=== PATIENT | male | born 1955 | race Caucasian/White ===

== ENCOUNTER 2020-06-02 10:09 | Outpatient (CLI) | payer MEDICARE ==
--- NOTE | 2020-06-02 10:28 | RAD ---
XR Hip Lt 2-3 View HISTORY: Left hip pain, hip arthritis FINDINGS: No fracture or dislocation is identified. There are degenerative changes in the left hip joint. IMPRESSION: Left hip osteoarthritis
== END 2020-06-02 10:10 | disposition home or self-care (01) ==
LOC: BICRAD 10:09
PROVIDERS: ATTEND Anesthesiology Pain Medicine
DX: M16.12 Unilateral primary osteoarthritis, left hip (principal)

== ENCOUNTER 2020-08-27 13:45 | Inpatient (IN) | payer MEDICARE ==
[2020-08-30 11:23] VITALS: BMI 26.2
[2020-08-31] MEDS ORDERED: Sodium Chloride 0.9% 100 ML ONE (06:02)
[2020-08-31] MEDS ORDERED: Vancomycin 1.5 GRAM/300 ML BAG ONE (06:02)
[2020-08-31] MEDS ORDERED: Tranexamic Acid 1,000 MG/10 ML VIAL ONE ×2 (06:02)
[2020-08-31] MEDS ORDERED: Fentanyl 100 MCG/2 ML VIAL ONE ×4 (06:25→09:41)
[2020-08-31] MEDS ORDERED: Midazolam HCl 2 mg/2 ml Vial ONE (06:26)
[2020-08-31] MEDS ORDERED: Acetaminophen 500 MG TAB PO PRN ×2 (07:24→16:00)
[2020-08-31] MEDS ORDERED: Ropivacaine 0.2% HCl/PF 20 ML ONE (07:25)
[2020-08-31] MEDS ORDERED: Promethazine HCl 25 MG/ML VIAL IM PRN ×4 (07:30→16:00)
[2020-08-31] MEDS ORDERED: Hydrocerin (Eucerin) Cream 120 gm Jar TOP PRN ×2 (07:30→16:00)
[2020-08-31] MEDS ORDERED: Promethazine HCl 25 MG SUPP PR PRN ×2 (07:30→16:00)
[2020-08-31] MEDS ORDERED: diphenhydrAMINE 25 MG CAP PO PRN ×3 (07:30→16:00)
[2020-08-31] MEDS ORDERED: Zolpidem Tartrate 5 MG TAB PO PRN ×3 (07:30→16:00)
[2020-08-31] MEDS ORDERED: Naloxone HCl 0.4 mg/ml Vial IVP PRN (07:30)
[2020-08-31] MEDS ORDERED: traMADol HCl 50 MG TAB PO PRN ×5 (07:30→16:00)
[2020-08-31] MEDS ORDERED: diphenhydrAMINE 50 MG/ML VIAL IVP PRN ×2 (07:30→16:00)
[2020-08-31] MEDS ORDERED: Naloxone HCl 0.4 mg/ml Vial IV PRN (07:30)
[2020-08-31] MEDS ORDERED: Bupivacaine 0.25% 10 ML VIAL EPIDURAL PRN (07:30)
[2020-08-31] MEDS ORDERED: Ondansetron PF 4 MG/2 ML Vial IVP PRN ×3 (07:30→16:00)
[2020-08-31] MEDS ORDERED: HYDROcodone/Acetaminophen 5/325 mg Tablet PO PRN ×4 (07:30→16:00)
[2020-08-31] MEDS ORDERED: diphenhydrAMINE 50 MG/ML VIAL IM PRN ×2 (07:30→16:00)
[2020-08-31] MEDS ORDERED: Sodium Chloride 0.9% 10 ML ONE (07:32)
[2020-08-31] MEDS ORDERED: Ondansetron HCl/PF 4 MG/2 ML Vial IVP PRN (08:14)
[2020-08-31] MEDS ORDERED: Promethazine HCl 25 MG/ML VIAL SLOW IVP PRN (08:14)
--- NOTE | 2020-08-31 10:18 | RAD ---
LEFT HIP 1 VIEW: HISTORY: Postop evaluation. FINDINGS/IMPRESSION: Left hip prosthesis is noted. Components appear adequately positioned on this single projection. POS: AGW
--- NOTE | 2020-08-31 10:18 | RAD ---
AP PELVIS: INDICATION: Pelvic pain and hip pain. FINDINGS: Left hip prosthesis. Components appear adequately positioned. No evidence of loosening of the prost hetic components. Small osseous density is seen along the lateral right sacrum. If there is concern of sacral injury, further evaluation is recommended. The bony pelvis otherwise appears intact. The right hip is unremarkable. IMPRESSION: Indeterminate density adjacent to the lateral right mid sacrum. Recommend clinical correlation regar ding sacral injury. AP pelvis otherwise unremarkable with left hip prosthesis noted. POS: AGW
[2020-08-31] MEDS ORDERED: Ketorolac Tromethamine 30 MG/ML VIAL IVP PRN (11:02)
[2020-08-31] MEDS ORDERED: HYDROcodone/Acetaminophen 10/325 mg Tablet PO PRN ×2 (11:02)
[2020-08-31] MEDS ORDERED: Acetaminophen 325 MG TAB PO PRN (11:02)
[2020-08-31] MEDS ORDERED: Fentanyl 100 MCG/2 ML VIAL SLOW IVP PRN ×2 (11:02)
[2020-08-31] MEDS ORDERED: Ketorolac Tromethamine 30 MG/ML VIAL ONE (11:53)
[2020-08-31] MEDS: Ketorolac Tromethamine 30 MG/ML VIAL IVP SCH ×3 (11:55→23:40)
[2020-08-31] MEDS: Sodium Chloride 0.9% 1,000 ML IV SCH ×2 (11:55→21:03)
[2020-08-31] MEDS ORDERED: ePHEDrine 50 MG/ML VIAL ONE (11:59)
[2020-08-31] MEDS ORDERED: Lidocaine 1% PF 5 ML VIAL ONE (11:59)
[2020-08-31] MEDS ORDERED: Metoclopramide HCl 10 MG/2 ML VIAL ONE (11:59)
[2020-08-31] MEDS ORDERED: PROPOFOL 200 MG/20 ML VIAL ONE (11:59)
[2020-08-31] MEDS ORDERED: PHENYLEPHRINE-NS 100 MCG/ML 10 ML SYRINGE ONE (11:59)
[2020-08-31] MEDS ORDERED: Rocuronium Bromide 10 MG/ML (10ML VIAL) ONE (11:59)
[2020-08-31] MEDS ORDERED: Lidocaine 1.5% w/Epi 1:200K 30 ML VIAL (Epid Use) ONE (11:59)
[2020-08-31] MEDS ORDERED: Glycopyrrolate 0.2 MG/ML 5 ML SYRINGE ONE (11:59)
[2020-08-31] MEDS ORDERED: Ondansetron PF 4 MG/2 ML Vial ONE (11:59)
[2020-08-31] MEDS: CEFAZOLIN 2 GM in Premix Bag 1 BAG IVPB SCH ×2 (14:28→21:03)
[2020-08-31] MEDS: metFORMIN 500 MG TAB PO SCH (17:05)
[2020-08-31] MEDS ORDERED: Vancomycin 1.5 GRAM/300 ML BAG 1.5 GM in Premix Bag 1 BAG IVPB SCH (18:00)
[2020-08-31] MEDS ORDERED: Vancomycin HCl 1.5 GM in Sodium Chloride 0.9% 250 ML 300 ML IVPB SCH (18:00)
[2020-08-31] MEDS: Alogliptin 6.25 MG TAB PO SCH (21:00)
[2020-08-31] MEDS: Ferrous Gluconate 324 MG TAB PO SCH (21:02)
[2020-08-31] MEDS: Aspirin 81 mg Enteric Coated Tablet PO SCH (21:02)
[2020-08-31] MEDS: Senokot S 8.6-50 MG TAB PO SCH (21:02)
[2020-08-31] MEDS: Fentanyl 5 mcg/Bup 0.075% Cadd 100 ML EPIDURAL SCH (23:48)
[2020-09-01] MEDS: Ketorolac Tromethamine 30 MG/ML VIAL IVP SCH ×4 (05:40→22:59)
--- NOTE | 2020-09-01 06:35 | OP ---
DATE OF PROCEDURE: 08/31/2020 PREOPERATIVE DIAGNOSIS: Left hip osteoarthritis. POSTOPERATIVE DIAGNOSIS: Left hip osteoarthritis. PROCEDURE PERFORMED: Left total hip arthroplasty. POULTRY VETERINARIAN: Maico Hyman PA-C ANESTHESIOLOGIST: Aydin Sampson MD ANESTHESIA: The patient received general intubation with epidural. ESTIMATED BLOOD LOSS: 175. TOURNIQUET TIME: None. ANTIBIOTICS: Ancef 2 g and vancomycin 1.5 g. The patient received TXA 1 g. IMPLANTS: A Trident II 56 mm shell with a Trident X3 10-degree poly, 36 mm; Accolate II 130-degree stem, size 4; a Biolox Delta 36 mm +0 femoral head. COMPLICATIONS: None. INDICATIONS FOR PROCEDURE: Mr. Knight is a 65-year-old male with left hip pain. The patient failed conservative measures including pain, weight reduction, anti-inflammatories, home stretching, and injections. The patient understood the risks and benefits of left total hip to include pain, scar, bleeding, infection, damage to vital structures, decreased range of motion and strength, continued pain despite surgical intervention, need for further surgeries, loss of life or limb. The patient and family understood the risks and benefits, understood that it could be slightly shortened, slightly lengthened, or external rotated. He understood these risks and benefits and elected to proceed. DESCRIPTION OF PROCEDURE: Time-out was performed designating the patient's left lower extremity as the operative site based on site, consents, and marking. After time-out, the patient's left lower extremity was prepped and draped in sterile fashion. The patient was placed in lateral decubitus position with bony prominences well padded and axillary roll in place. The patient was prepped and draped in a sterile fashion. I made a skin incision down through skin and came down to the IT band. Split the IT band, I came down to the gluteus medius and peeled off the quadratus femoris. We exposed the capsule. We T'd the capsule, put stay sutures in the anterior and posterior, dislocated the head, cut the femoral neck and removed the femoral head. We moved back to the acetabulum, placed our acetabular retractors anterior and posterior, sized our labrum, started sequentially reaming, reamed up to a 54 trial, felt that we would have better fit with the 56, placed a 56 mm cup in position, hammered in position. We used an osteotome to osteotome some of the bone anteriorly to help with any potential signs of impingement. We then washed. We put our final 56 mm cup into position and impacted in place. Had a slight bleeder, which we controlled, placed our poly, moved to our femur. We broached up starting with our [employer] cutter, opening awl, broached up to a size 4, had good overall alignment. First trialed with a -5, placed our final stem, placed a standard in, we trialed, we felt it was good position. We then placed the ceramic Biolox 36 mm standard head, reduced it into place. We liked the length, rotation, and stability. We washed. We closed the capsule with #2 Vicryl. We closed the medius and minimus using #5 through drill hole laterally, passing a W stitch up and down through the medius and minimus, passing one more drill hole back in the lateral bridge, cut that stitch. We then closed the remainder of the tenotomy with #2 Vicryl. We went to the IT band, which we closed with #2 Vicryl, 2 Stratafix and closed the skin with 0, 3-0 Stratafix, and glue. The patient will be weightbearing as tolerated. We will follow in-house and he will be discharged based on activities. My physiotherapy assistant helped me with the positioning, approach, retraction of major structures, femoral neck cut, acetabular reaming, trialing, implantation, and closure. Job ID: [id number]
[2020-09-01 06:57] LABS: Hemoglobin 12.3 g/dL (14.0-18.0); Mean Corpuscular HGB CONC 33.7 g/dL (32.0-36.0); Mean Corpuscular Hemoglobin 31.3 pg (27.0-31.0); Mean Corpuscular Volume 92.9 fL (78.0-98.0); Mean Platelet Volume 8.3 fL (7.4-10.4); Platelet Count 179 thou/uL (130-400); RBC Distribution Width 11.3 % (11.5-14.5); Red Blood Cell (RBC) Count 3.94 mill/uL (4.70-6.10); White Blood Cell (WBC) Count 10.2 thou/uL (4.8-10.8)
[2020-09-01] MEDS: Sodium Chloride 0.9% 1,000 ML IV SCH ×2 (07:22→16:50)
[2020-09-01] MEDS: metFORMIN 500 MG TAB PO SCH ×2 (08:45→17:21)
[2020-09-01] MEDS: Rosuvastatin 10 MG TAB PO SCH (08:45)
[2020-09-01] MEDS: Aspirin 81 mg Enteric Coated Tablet PO SCH ×2 (08:45→20:27)
[2020-09-01] MEDS: Meloxicam 15 MG TAB PO SCH (08:45)
[2020-09-01] MEDS: Alogliptin 6.25 MG TAB PO SCH ×2 (08:45→20:26)
[2020-09-01] MEDS: Senokot S 8.6-50 MG TAB PO SCH ×2 (08:46→20:27)
[2020-09-01] MEDS: Multivitamin W/ Minerals 1 TAB PO SCH (08:46)
[2020-09-01] MEDS: Lisinopril/Hydrochlorothiazide 20/25 mg Tablet PO SCH (08:46)
[2020-09-01] MEDS: Ferrous Gluconate 324 MG TAB PO SCH ×2 (08:46→20:26)
[2020-09-01] MEDS ORDERED: Multivitamin W/ Minerals 1 TAB PO SCH (09:00)
[2020-09-01] MEDS: Fentanyl 5 mcg/Bup 0.075% Cadd 100 ML EPIDURAL SCH (16:09)
[2020-09-02] MEDS: Sodium Chloride 0.9% 1,000 ML IV SCH (02:14)
[2020-09-02 05:05] LABS: Hemoglobin 11.8 g/dL (14.0-18.0); Mean Corpuscular HGB CONC 34.1 g/dL (32.0-36.0); Mean Platelet Volume 7.8 fL (7.4-10.4); Platelet Count 158 thou/uL (130-400); RBC Distribution Width 11.2 % (11.5-14.5); White Blood Cell (WBC) Count 10.8 thou/uL (4.8-10.8)
[2020-09-02] MEDS: Ketorolac Tromethamine 30 MG/ML VIAL IVP SCH (05:20)
[2020-09-02] MEDS: Senokot S 8.6-50 MG TAB PO SCH (08:04)
[2020-09-02] MEDS: metFORMIN 500 MG TAB PO SCH (08:04)
[2020-09-02] MEDS: Aspirin 81 mg Enteric Coated Tablet PO SCH (08:04)
[2020-09-02] MEDS: Rosuvastatin 10 MG TAB PO SCH (08:05)
[2020-09-02] MEDS: Ferrous Gluconate 324 MG TAB PO SCH (08:05)
[2020-09-02] MEDS: Lisinopril/Hydrochlorothiazide 20/25 mg Tablet PO SCH (08:05)
[2020-09-02] MEDS: Meloxicam 15 MG TAB PO SCH (08:05)
[2020-09-02] MEDS: Multivitamin W/ Minerals 1 TAB PO SCH (08:06)
[2020-09-02] MEDS: Alogliptin 6.25 MG TAB PO SCH (09:04)
[2020-09-02] MEDS ORDERED: HYDROcodone/Acetaminophen 10/325 mg Tablet PO PRN ×2 (10:11)
[2020-09-02 11:31] VITALS: BP 111/74; TEMP 98.2
[2020-09-02] MEDS ORDERED: Ibuprofen 200 MG TAB PO PRN (14:00)
== END 2020-09-02 13:15 | disposition home or self-care (01) | DRG 470 ==
LOC: SURG A 08-31 05:52 → SURG B 08-31 15:43
PROVIDERS: ADMIT Orthopaedic Surgery; ATTEND Orthopaedic Surgery
PROC: 0SRB04Z Replacement of Left Hip Joint with Ceramic on Polyethylene Synthetic Substitute, Open Approach (ICD-10-PCS; principal; 2020-08-31)
DX: M16.12 Unilateral primary osteoarthritis, left hip (principal); E78.5 Hyperlipidemia, unspecified; I10 Essential (primary) hypertension; Z20.828 Contact with and (suspected) exposure to other viral communicable diseases; Z90.49 Acquired absence of other specified parts of digestive tract; Z87.891 Personal history of nicotine dependence; Z85.828 Personal history of other malignant neoplasm of skin; Z79.899 Other long term (current) drug therapy
CPT/HCPCS: 36415; 72170; 85027; J0690; J1885; J2001; J2250; J2405; J2704; J2765; J2795; J3010; J3370; J3490; Q0163

== ENCOUNTER 2020-08-27 14:28 | Outpatient (CLI) | payer MEDICARE ==
[2020-08-27 15:59] LABS: #Eosinphils 0.3 10x3/uL (0.0-0.5); #Monocytes 0.8 10x3/uL (0.0-1.1); #Neutrophils 8.3 10x3/uL (1.5-8.4); %Basophils 0.3 % (0.0-2.0); %Eosinophils 2.2 % (0.0-6.0); %Lymphocytes 20.8 % (18.0-47.0); %Monocytes 6.5 % (0.0-10.0); %Neutrophils 69.7 % (40.0-75.0); Hemoglobin 14.7 g/dL (14.0-18.0); Mean Corpuscular HGB CONC 33.1 G/DL (32.0-36.0); Mean Corpuscular Hemoglobin 30.2 PG (27.0-33.0); Mean Corpuscular Volume 91.2 fl (80.0-100.0); Mean Platelet Volume 10.8 fl (7.4-10.4); Platelet Count 271 10x3/uL (130-400); RBC Distribution Width 12.2 % (11.5-14.5); Red Blood Cell (RBC) Count 4.87 10x6/uL (4.40-5.80)
[2020-08-27 16:14] LABS: Anion Gap 16 mmol/L (10-20); BUN (Urea Nitrogen) 24 mg/dL (8.4-25.7); Calc. Creatinine Clearance 0 mL/min (70-130); Calcium 9.1 mg/dL (7.8-10.44); Carbon Dioxide 25 mmol/L (23-31); Chloride 105 mmol/L (98-107); Estimated GFR-MDRD 67; Glucose 93 mg/dL (80-115); Potassium 4.2 mmol/L (3.5-5.1); Sodium 142 mmol/L (136-145)
[2020-08-27 16:28] LABS: INR-International Normal Ratio 1.1; Prothrombin Time 11.6 sec (9.5-12.1)
[2020-08-28 11:01] LABS: SARS-CoV-2 MS2 Positive; SARS-CoV-2 N Gene Negative; SARS-CoV-2 S Gene Negative; SARS-CoV-2 by NAA Not Detected (NotDetected); SARS-CoV-2 orf1ab Negative
== END 2020-08-27 14:29 | disposition home or self-care (01) ==
LOC: LABBT 14:28
PROVIDERS: ATTEND Neurological Surgery
DX: Z01.812 Encounter for preprocedural laboratory examination (principal); Z20.828 Contact with and (suspected) exposure to other viral communicable diseases; M16.12 Unilateral primary osteoarthritis, left hip
CPT/HCPCS: 80048; 85025; 85610; 87081; U0003; 87635